=== PATIENT | female | born 1985 | race Caucasian/White ===

== ENCOUNTER 2016-04-24 23:43 | Emergency (ER) | payer OTHER ==
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
--- NOTE | 2016-04-25 02:03 | ED ORDER SUMMARY ---
..... Patient: GIO NDIAYE OrderSheet [facility] VisitID: [id number] [place] [address] 30y, F Registration Date/Time: 04/24/2016 ORDER SHEET Weight: 92.9 kg (stated) Allergies: Latex, Penicillins, Vancomycin GENERAL ORDERS: CT Head wo Cont Urgent (00:35 04/25/2016 Judy SLATER) (Ack 0:42 CHagerty ER Agate Setter) (1:32 GUnger) CT Cervical Spine wo Cont Urgent (00:35 04/25/2016 Judy SLATER) (Ack 0:42 Tastemakererty ER Agate Setter) (1:32 GUnger) Urine Urgent (00:48 04/25/2016 DBeyer R.N. per protocol) (0:53 DBeyer R.N.) MEDICATION ORDERS: Zofran ODT PO 4 mg (NOW) (01:07 04/25/2016 DBeyer R.N. verbal order read back to Judy SLATER) (1:08 DBeyer R.N.) IV FLUIDS: ORDER SHEET NOTES: [Electronically signed by Sabino Jang MD (04:17 04/25/2016)] [Electronically signed by Bozena Rubin R.N. (19:34 04/25/2016)] [Electronically locked/signed by Bozena Rubin R.N. (19:34 04/25/2016)]
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
--- NOTE | 2016-04-25 02:03 | ED ORDER SUMMARY ---
..... Patient: GIO NDIAYE OrderSheet [facility] VisitID: [id number] [place] [address] 30y, F Registration Date/Time: 04/24/2016 ORDER SHEET Weight: 92.9 kg (stated) Allergies: Latex, Penicillins, Vancomycin GENERAL ORDERS: CT Head wo Cont Urgent (00:35 04/25/2016 Judy SLATER) (Ack 0:42 CHagerty ER Pole Sander Operator) (1:32 GUnger) CT Cervical Spine wo Cont Urgent (00:35 04/25/2016 Judy SLATER) (Ack 0:42 AnTuTuerty ER Pole Sander Operator) (1:32 GUnger) Urine Urgent (00:48 04/25/2016 DBeyer R.N. per protocol) (0:53 DBeyer R.N.) MEDICATION ORDERS: Zofran ODT PO 4 mg (NOW) (01:07 04/25/2016 DBeyer R.N. verbal order read back to Judy SLATER) (1:08 DBeyer R.N.) IV FLUIDS: ORDER SHEET NOTES: [Electronically signed by Sabino Jang MD (04:17 04/25/2016)] [Electronically signed by Bozena Rubin R.N. (19:34 04/25/2016)] [Electronically locked/signed by Bozena Rubin R.N. (19:34 04/25/2016)]
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
--- NOTE | 2016-04-25 19:35 | ED MAR SUMMARY ---
..... Medication Administration Record [facility] [address] [place] [address] Patient: GIO NDIAYE Visit ID: [id number] 30y, F Weight: 92.9 kg Height/Length: 68 in BMI: 31.1 ALLERGIES: Latex, Penicillins, Vancomycin Given 01:08 04/25/2016 Marcelo Tang RDericNDeric Medication Administered: ZOFRAN ODT [PO] (ONDANSETRON), Dose: 4 mg PO. Medication Ordered: Zofran ODT PO 4 mg (NOW).
--- NOTE | 2016-04-25 19:35 | ED MAR SUMMARY ---
..... Medication Administration Record [facility] [address] [place] [address] Patient: GIO NDIAYE Visit ID: [id number] 30y, F Weight: 92.9 kg Height/Length: 68 in BMI: 31.1 ALLERGIES: Latex, Penicillins, Vancomycin Given 01:08 04/25/2016 Marcelo Tang RDericNDeric Medication Administered: ZOFRAN ODT [PO] (ONDANSETRON), Dose: 4 mg PO. Medication Ordered: Zofran ODT PO 4 mg (NOW).
--- NOTE | 2016-04-25 19:35 | ED MED RECONCILIATION SUMMARY ---
Patient: GIO NDIAYE Medication Reconciliation Report [facility] VisitID: [id number] [place] [address] 30y, F Registration Date/Time: 04/24/2016 Weight: 92.9 kg Height/Length: 68 in. BMI: 31.1 ALLERGIES: Latex, Penicillins, Vancomycin The patient's Home Medications are listed below: CONTINUE TAKING THE FOLLOWING MEDICATIONS: [place] Oral The source(s) of the original Home Medication information: Not obtained. The following Medications were given to the patient in the Emergency Department: Zofran ODT [PO] PO 4 mg, administered: 04/25/2016 1:08:00 AM The following Medications were prescribed to the patient: Motrin (available over the counter): take according to label instructions. -- Sabino Jang MD Flexeril 10 mg: Take 1 orally every 8 hours as needed for muscle spasm. Dispense twenty (20). No refills. Substitution is permissible. -- Sabino Jang MD
--- NOTE | 2016-04-25 19:35 | ED MED RECONCILIATION SUMMARY ---
Patient: GIO NDIAYE Medication Reconciliation Report [facility] VisitID: [id number] [place] [address] 30y, F Registration Date/Time: 04/24/2016 Weight: 92.9 kg Height/Length: 68 in. BMI: 31.1 ALLERGIES: Latex, Penicillins, Vancomycin The patient's Home Medications are listed below: CONTINUE TAKING THE FOLLOWING MEDICATIONS: [place] Oral The source(s) of the original Home Medication information: Not obtained. The following Medications were given to the patient in the Emergency Department: Zofran ODT [PO] PO 4 mg, administered: 04/25/2016 1:08:00 AM The following Medications were prescribed to the patient: Motrin (available over the counter): take according to label instructions. -- Sabino Jang MD Flexeril 10 mg: Take 1 orally every 8 hours as needed for muscle spasm. Dispense twenty (20). No refills. Substitution is permissible. -- Sabino Jang MD
== END 2016-04-25 02:30 | disposition home or self-care (01) ==
LOC: ED SRH 23:43
DX: S16.1XXA Strain of muscle, fascia and tendon at neck level, initial encounter (principal); R51 Headache; V43.62XA Car passenger injured in collision with other type car in traffic accident, initial encounter; Y93.9 Activity, unspecified; Y92.9 Unspecified place or not applicable; Y99.9 Unspecified external cause status; Z79.899 Other long term (current) drug therapy; Z91.040 Latex allergy status; Z88.1 Allergy status to other antibiotic agents; Z88.0 Allergy status to penicillin

== ENCOUNTER 2016-05-01 01:06 | Observation (INO) | payer OTHER ==
[~2016-05-01] VITALS: Ht 175.3 cm; Wt 98.9 kg
[2016-05-01 02:15] VITALS: BP 136/85
--- NOTE | 2016-05-01 07:07 | History & Physical Report ---
Information Source Information Source: Self, - ED physician Reliability: Good History Chief Complaint elevated lithium levels History of Present Illness Patient is a 30 year old female that is presenting with elevated levels of lithium. Patient has been taking lithium for bipolar disorder as well as seroquel. Patient was finding that the seroquel has been making her very sedated therefore the patient asked that the medication be dropped from her regimen. Patients psychiatrist as a result raised the patients lithium dose from 900 to 1200 mg daily. Patient was finding herself very sedated from the increase in her lithium more so than before. Patient was also having other vague complaints incluidng headaches, increased urinary frequency, abdominal pain, change in her vision, and sedation. Patient received a call from her psychiatrist asking her if she was experiencing any of these symptoms to which she replied she was, Patient was sent to have blood work drawn. Patient was noted to have a lithium level of 16. Patient as a result was brought to the ER. Patient in the ER was seen to have continual polyuria and headaches. Patient has no other complaints at the moment. Patient is otherwise mentating normally and is hemodynamically stable. Patient History 1. [place] toxicity 2. Polyuria 3. Anxiety 4. Opiate dependence Social History Patient does not smoke, drink or use illiicit substances. Patient is a stay at home mom, lives with her fiance and her three children. Family History Family history was reviewed; no changes noted. Medications and Allergies Medications Home Meds Clonidine .1 mg tab as needed [place] citrate 56068 mg daily methadone 60 mg daily Current Medications Sig/Dave Start time Last Medication Dose Route Stop Time Status Admin Enoxaparin Sodium 40 MG QAM 05/01 0900 AC SC Methadone HCl 60 MG QAM 05/01 0900 AC PO Ondansetron HCl 4 MG Q6H PRN 05/01 0545 AC 05/01 IV 0600 Clonidine HCl 0.1 MG Q4H PRN 05/01 0315 AC 05/01 PO 0355 Ibuprofen 600 MG Q6H PRN 05/01 0315 AC PO Acetaminophen 650 MG Q6H PRN 05/01 0300 AC PO Sodium Chloride 1,000 ML ASDIRECTED 05/01 0300 AC 05/01 IV 0355 Allergies Coded Allergies: Clindamycin (05/01/16) Latex (05/01/16) Penicillins (05/01/16) Vancomycin (05/01/16) Review of Systems Constitutional Weakness, Malaise. Denies: Fever, Chills, Sweats, Other. Eyes Vision Change. Denies: Pain, Conjunctival Inflammation, Eyelid Inflammation, Redness, Other. ENT Denies: Ear Pain, Ear Discharge, Nose Pain, Nasal Discharge, Nasal Congestion, Mouth Pain, Mouth Swelling, Throat Pain, Throat Swelling, Other. Respiratory Denies: Cough, Dry, SOB w/exertion, Wheezing, Hemoptysis, Pleuritic Pain, Sputum , Other. Cardiovascular Denies: Chest Pain, Palpitations, Orthopnea, PND, Edema, Light-headedness, Other. Gastrointestinal Denies: Nausea, Vomiting, Abdominal Pain, Diarrhea, Constipation, Melena, Hematochezia, Other. Genitourinary Frequency. Denies: Dysuria, Incontinence, Hematuria, Retention, Other. Musculoskeletal Back Pain. Denies: Neck Pain, Shoulder Pain, Arm Pain, Hand Pain, Leg Pain, Foot Pain, Other. Skin Denies: Rash, Lesions, Jaundice, Bruising, Other. Neurological Denies: Weakness, Numbness, Incoordination, Change in speech, Confusion, Seizures, Other. Physical Exam Vital Signs / I&Os Labs at [place] WBC- 9 HGB- 12.7 PLT- 276 Sodium - 139 K-3.9 Cl- 104 Co2- 237 Glucose- 103 Cr- 1.2 BUN- 14 Vital Signs Date Time Temp Pulse Resp B/P Pulse O2 O2 Flow FiO2 Ox Delivery Rate 05/01 0359 0.0 05/01 0215 98.8 65 18 136/85 92 Room Air General Appearance Alert, Oriented X3, No acute distress HEENT Normal exam, Atraumatic, Moist mucous membranes Lungs Normal exam, Clear to auscultation Neck Supple, No JVD, No thyromegaly, No lymphadenopathy, 2+ carotid pulse wo bruit Cardiovascular Regular rate and rhythm, Normal S1 and S2, No murmurs, gallops, rubs Abdomen Normal bowel sounds, Soft, No tenderness, No rebound, No masses Extremities No clubbing, No edema, Normal pulses, No tenderness, Strength = upper ext's, Strength = lower ext's Skin No Rashes, No Breakdown Neurological Normal speech, Normal tone, Sensation intact, Reflexes 2+ and equal , Strength 5/5 x4 ext's Psych/Mental Status Mental status normal Assessment and Plan Problem List 1. [place] toxicity Plan - will actively hydrate with normal saline - given level no need for urgent dialysis or renal consult - will follow up level of lithium in late morning - will obtain repeat bmp - will monitor for neurological changes 2. Anxiety Plan - c/w clonidine .1 mg tid 3. Opiate dependence Plan - pt is an ex heroin user - will use opioids sparingly - will continue with methadone 60 mg daily
[2016-05-01] MEDS ORDERED: CATAPRES0.1 MG PO (07:59)
[2016-05-01] MEDS ORDERED: LITHIUM CARBON600 MG PO (08:00)
[2016-05-01] MEDS ORDERED: METHADONE HCL10 MG PO (08:00)
[2016-05-01] MEDS ORDERED: LITHIUM CARBON300 MG PO (08:01)
[2016-05-01 09:58] VITALS: BP 103/68
[2016-05-01] MEDS ORDERED: TYLENOL325 MG PO (11:07)
--- NOTE | 2016-05-01 11:12 | Provider's Discharge Care Plan ---
Problem, Goal, Plan Problem List 1. [place] toxicity Goals: Improve disease control, Prevent disease progress Instructions: Follow up as directed, Take meds as directed 2. Hypothyroidism Goals: Improve disease control, Prevent disease progress Instructions: Follow up as directed, Take meds as directed, Follow up with your physician to discuss treatment of hypothyroidism
== END 2016-05-01 11:55 | disposition home or self-care (01) ==
LOC: ACUTE2 SRH 02:08
PROVIDERS: ADMIT Internal Medicine
DX: R40.0 Somnolence (principal); R35.0 Frequency of micturition; T43.595A Adverse effect of other antipsychotics and neuroleptics, initial encounter; F31.9 Bipolar disorder, unspecified; F41.9 Anxiety disorder, unspecified; F11.20 Opioid dependence, uncomplicated
CPT/HCPCS: 29230; 29231; 29246; 29247; 29251; 90004; 90074; 90100; 90469; 91589; 93140; 95059